=== PATIENT | female | born 1985 | race Caucasian/White ===

== ENCOUNTER 2022-02-20 13:18 | Outpatient (CLI) | payer BC, SELFPAY ==
--- OUTSIDE RECORDS SUMMARY | 2022-02-20 13:20 | XMS_ITS | Clinical Summary ---
:1985 Author Organization [employer] [facility] [place] [address] Care Team Providers Name Role Phone Pcp, No Primary Care Provider Unavailable Allergies Active Allergy Reactions Severity Noted Date Comments Penicillins Rash 06/07/2016 Medications No known medications Active Problems Not on file Social History Tobacco Use Types Packs/Day Years Used Date Never Smoker Tobacco Cessation: Counseling Given: Yes Alcohol Use Standard Drinks/Week Comments No 0 (1 standard drink = 0.6 oz pure alcoho l) Sex Assigned at Date Recorded Not on file Obstetrics History Last Filed Vital Signs Vital Sign Reading Time Taken Comments Blood Pressure 128/88 06/07/2016 5:34 PM BAG SEALER Pulse 80 06/07/2016 5:34 PM BAG SEALER Temperature 37 ??C (98.6 ??F) 06/07/2016 5:34 PM BAG SEALER Respiratory Rate - - Oxygen Saturation 98% 06/07/2016 5:34 PM BAG SEALER Inhaled Oxygen Concentration - - Weight 65.8 kg (145 lb) 06/07/2016 5:34 PM BAG SEALER Height 162.7 cm (5' 4.06) 06/07/2016 5:34 PM BAG SEALER Body Mass Index 24.85 06/07/2016 5:34 PM BAG SEALER Plan of Treatment Health Maintenance Due Date Last Done Comments COVID-19 vaccine series (#1) 1984 Tdap 1995 Depression screening for age 12+ 1996 Hepatitis C screening for age 18-79 2002 Tetanus booster 2004 BMI (ht and wt on same day) for age 18+ 06/07/2017 06/07/20 16 Pap test for age 21-65 04/05/2020 04/05/2017, 04/05/2017 Influenza for age 9-49 02/09/2022 Results Not on filefrom Last 3 Months Insurance Payer Benefit Plan / Subscriber ID Effective Dates Phone Addre ss Type Group BLUE CROSS BLUE CROSS OF [id number] 2014-Present [address] [address] [place] [address] Care Teams Paint Tester Relationship Specialty Start Date End Date Pcp, No PCP - General 06/07/16 .
== END 2022-02-20 13:19 | disposition home or self-care (01) ==
LOC: NFLDREF 13:18
PROVIDERS: Visit Provider Obstetrics & Gynecology
DX: N97.0 Female infertility associated with anovulation (principal)
CPT/HCPCS: 84144

== ENCOUNTER 2022-03-21 17:25 | Outpatient (CLI) | payer BC, SELFPAY ==
--- OUTSIDE RECORDS SUMMARY | 2022-03-21 13:11 | XMS_ITS | Clinical Summary ---
:1985 Author Organization [employer] [facility] [place] [address] Care Team Providers Name Role Phone Pcp, [...] Comments Blood Pressure 128/88 06/07/2016 5:34 PM FIRST AID TEACHER Pulse 80 06/07/2016 5:34 PM FIRST AID TEACHER Temperature 37 ??C (98.6 ??F) 06/07/2016 5:34 PM FIRST AID TEACHER Respiratory Rate - - Oxygen Saturation 98% 06/07/2016 5:34 PM FIRST AID TEACHER Inhaled Oxygen Concentration - - Weight 65.8 kg (145 lb) 06/07/2016 5:34 PM FIRST AID TEACHER Height 162.7 cm (5' 4.06) 06/07/2016 5:34 PM FIRST AID TEACHER Body Mass Index 24.85 06/07/2016 5:34 PM FIRST AID TEACHER Plan of Treatment Health Maintenance Due Date [...] Type Group BLUE CROSS BLUE CROSS OF [id number] 2014-Present [address] [address] [place] [address] Care Teams Maintenance Advisor Relationship Specialty Start Date End Date Pcp, No PCP - General 06/07/16 .
== END 2022-03-21 17:26 | disposition home or self-care (01) ==
PROVIDERS: Visit Provider Obstetrics & Gynecology
DX: R63.5 Abnormal weight gain (principal)
CPT/HCPCS: 84443

== ENCOUNTER 2022-03-30 17:25 | Outpatient (CLI) | payer BC, SELFPAY ==
--- OUTSIDE RECORDS SUMMARY | 2022-03-30 16:28 | XMS_ITS | Clinical Summary ---
:1985 Author Organization [employer] [facility] [place] [address] Care Team Providers Name Role Phone Pcp, [...] Comments Blood Pressure 128/88 06/07/2016 5:34 PM BODY SANDER Pulse 80 06/07/2016 5:34 PM BODY SANDER Temperature 37 ??C (98.6 ??F) 06/07/2016 5:34 PM BODY SANDER Respiratory Rate - - Oxygen Saturation 98% 06/07/2016 5:34 PM BODY SANDER Inhaled Oxygen Concentration - - Weight 65.8 kg (145 lb) 06/07/2016 5:34 PM BODY SANDER Height 162.7 cm (5' 4.06) 06/07/2016 5:34 PM BODY SANDER Body Mass Index 24.85 06/07/2016 5:34 PM BODY SANDER Plan of Treatment Health Maintenance Due Date [...] Type Group BLUE CROSS BLUE CROSS OF [id number] 2014-Present [address] [address] [place] [address] Care Teams Hr Administrative Assistant Relationship Specialty Start Date End Date Pcp, No PCP - General 06/07/16 .
[2022-04-06 14:37] LABS: Progesterone, HPLC-MS/MS 18.11 ng/mL
== END 2022-03-30 17:26 | disposition home or self-care (01) ==
PROVIDERS: Visit Provider Obstetrics & Gynecology
DX: N91.5 Oligomenorrhea, unspecified (principal); N97.0 Female infertility associated with anovulation
CPT/HCPCS: 84144

== ENCOUNTER 2022-04-10 16:51 | Outpatient (CLI) | payer BC, SELFPAY ==
--- OUTSIDE RECORDS SUMMARY | 2022-04-10 16:17 | XMS_ITS | Clinical Summary ---
:1985 Author Organization [employer] [facility] [place] [address] Care Team Providers Name Role Phone Pcp, [...] Comments Blood Pressure 128/88 06/07/2016 5:34 PM SKIP LOCATOR Pulse 80 06/07/2016 5:34 PM SKIP LOCATOR Temperature 37 ??C (98.6 ??F) 06/07/2016 5:34 PM SKIP LOCATOR Respiratory Rate - - Oxygen Saturation 98% 06/07/2016 5:34 PM SKIP LOCATOR Inhaled Oxygen Concentration - - Weight 65.8 kg (145 lb) 06/07/2016 5:34 PM SKIP LOCATOR Height 162.7 cm (5' 4.06) 06/07/2016 5:34 PM SKIP LOCATOR Body Mass Index 24.85 06/07/2016 5:34 PM SKIP LOCATOR Plan of Treatment Health Maintenance Due Date [...] Type Group BLUE CROSS BLUE CROSS OF [id number] 2014-Present [address] [address] [place] [address] Care Teams Cement Storage Worker Relationship Specialty Start Date End Date Pcp, No PCP - General 06/07/16 .
[2022-04-10 17:40] LABS: HCG Quantitative* 69.64 mIU/mL
== END 2022-04-10 16:52 | disposition home or self-care (01) ==
PROVIDERS: Visit Provider Obstetrics & Gynecology
DX: N96 Recurrent pregnancy loss (principal)
CPT/HCPCS: 84702

== ENCOUNTER 2022-04-13 08:15 | Outpatient (CLI) | payer BC, SELFPAY ==
--- OUTSIDE RECORDS SUMMARY | 2022-04-13 08:18 | XMS_ITS | Clinical Summary ---
:1985 Author Organization [employer] [facility] [place] [address] Care Team Providers Name Role Phone Pcp, [...] Comments Blood Pressure 128/88 06/07/2016 5:34 PM CONSOLE MANAGER Pulse 80 06/07/2016 5:34 PM CONSOLE MANAGER Temperature 37 ??C (98.6 ??F) 06/07/2016 5:34 PM CONSOLE MANAGER Respiratory Rate - - Oxygen Saturation 98% 06/07/2016 5:34 PM CONSOLE MANAGER Inhaled Oxygen Concentration - - Weight 65.8 kg (145 lb) 06/07/2016 5:34 PM CONSOLE MANAGER Height 162.7 cm (5' 4.06) 06/07/2016 5:34 PM CONSOLE MANAGER Body Mass Index 24.85 06/07/2016 5:34 PM CONSOLE MANAGER Plan of Treatment Health Maintenance Due Date [...] Type Group BLUE CROSS BLUE CROSS OF [id number] 2014-Present [address] [address] [place] [address] Care Teams Rhit Relationship Specialty Start Date End Date Pcp, No PCP - General 06/07/16 .
[2022-04-13 16:41] LABS: HCG Quantitative* 147.13 mIU/mL
== END 2022-04-13 08:16 | disposition home or self-care (01) ==
LOC: NFLDREF 08:16
PROVIDERS: Visit Provider Obstetrics & Gynecology
DX: N96 Recurrent pregnancy loss (principal); N97.9 Female infertility, unspecified
CPT/HCPCS: 84702

== ENCOUNTER 2022-04-27 15:52 | Outpatient (CLI) | payer BC, SELFPAY ==
--- OUTSIDE RECORDS SUMMARY | 2022-04-27 15:56 | XMS_ITS | Clinical Summary ---
:1985 Author Organization [employer] [facility] [place] [address] Care Team Providers Name Role Phone Pcp, [...] Comments Blood Pressure 128/88 06/07/2016 5:34 PM PROFILE MILL OPERATOR TAPE CONTROL Pulse 80 06/07/2016 5:34 PM PROFILE MILL OPERATOR TAPE CONTROL Temperature 37 ??C (98.6 ??F) 06/07/2016 5:34 PM PROFILE MILL OPERATOR TAPE CONTROL Respiratory Rate - - Oxygen Saturation 98% 06/07/2016 5:34 PM PROFILE MILL OPERATOR TAPE CONTROL Inhaled Oxygen Concentration - - Weight 65.8 kg (145 lb) 06/07/2016 5:34 PM PROFILE MILL OPERATOR TAPE CONTROL Height 162.7 cm (5' 4.06) 06/07/2016 5:34 PM PROFILE MILL OPERATOR TAPE CONTROL Body Mass Index 24.85 06/07/2016 5:34 PM PROFILE MILL OPERATOR TAPE CONTROL Plan of Treatment Health Maintenance Due Date [...] Type Group BLUE CROSS BLUE CROSS OF [id number] 2014-Present [address] [address] [place] [address] Care Teams Airport Ramp Attendant Relationship Specialty Start Date End Date Pcp, No PCP - General 06/07/16 .
--- NOTE | 2022-04-27 16:00 | CRLHL7_ITS ---
For Patients: As a result of the Century Cures Act, medical imaging exams and procedure reports are released immediately into your electronic medical record. You may view this report before your referring provider. If you have questions, please contact your health care provider. INDICATION: Early bleeding COMPARISON: None. TECHNIQUE: Real-time segura-scale imaging of the pelvis was performed. FINDINGS: The endometrium is thickened and measures 16 millimeters. No uterine fibroid. No intrauterine gestational sac. No endometrial fluid is present. No pelvic free fluid noted. There is a hyperechoic structure within the left ovary measuring 9 x 11 x 9 millimeters. Normal color Doppler flow to both ovaries. No evidence of ovarian torsion. Incidental right paraovarian simple cyst measuring 1.5 x 0.9 x 1.0 cm. Right ovary measures 3.4 x 2.3 x 2.6 cm. Left ovary measures 3.5 x 3.4 x 2.3 cm. IMPRESSION: No evidence of intrauterine or ectopic . Dictated by Agustin Jade MD @ 04/27/2022 5:55:36 PM (Electronically Signed)
== END 2022-04-27 15:53 | disposition home or self-care (01) ==
LOC: US 15:55
PROVIDERS: Visit Provider Obstetrics & Gynecology
DX: O20.9 Hemorrhage in early pregnancy, unspecified (principal); N96 Recurrent pregnancy loss
CPT/HCPCS: 76817

== ENCOUNTER 2022-05-01 15:46 | Outpatient (CLI) | payer BC, SELFPAY ==
--- OUTSIDE RECORDS SUMMARY | 2022-05-01 15:52 | XMS_ITS | Clinical Summary ---
:1985 Author Organization [employer] [facility] [place] [address] Care Team Providers Name Role Phone Pcp, [...] Comments Blood Pressure 128/88 06/07/2016 5:34 PM OFFICE CLERK Pulse 80 06/07/2016 5:34 PM OFFICE CLERK Temperature 37 ??C (98.6 ??F) 06/07/2016 5:34 PM OFFICE CLERK Respiratory Rate - - Oxygen Saturation 98% 06/07/2016 5:34 PM OFFICE CLERK Inhaled Oxygen Concentration - - Weight 65.8 kg (145 lb) 06/07/2016 5:34 PM OFFICE CLERK Height 162.7 cm (5' 4.06) 06/07/2016 5:34 PM OFFICE CLERK Body Mass Index 24.85 06/07/2016 5:34 PM OFFICE CLERK Plan of Treatment Health Maintenance Due Date [...] Type Group BLUE CROSS BLUE CROSS OF [id number] 2014-Present [address] [address] [place] [address] Care Teams Airline Counter Agent Relationship Specialty Start Date End Date Pcp, No PCP - General 06/07/16 .
[2022-05-03 12:58] LABS: Rheumatoid Factor <10 IU/mL (0-14)
[2022-05-04 03:39] LABS: Cardiolipin Antibody IgA <10 APL (<=11); Cardiolipin Antibody IgG <10 GPL (<=14); Cardiolipin Antibody IgM 10 MPL (<=12)
[2022-05-08 01:41] LABS: dRVVT Screen 32 sec (33-44)
== END 2022-05-01 15:47 | disposition home or self-care (01) ==
PROVIDERS: Visit Provider Obstetrics & Gynecology
DX: N96 Recurrent pregnancy loss (principal)
CPT/HCPCS: 82232; 85610; 85613; 85730; 86147; 86431; 88262

== ENCOUNTER 2022-06-16 17:14 | Outpatient (CLI) | payer BC, SELFPAY | END 2022-06-16 17:15 | disposition home or self-care (01) | PROVIDERS: Visit Provider Obstetrics & Gynecology | DX: N97.0 Female infertility associated with anovulation (principal); N96 Recurrent pregnancy loss | CPT/HCPCS: 84144 ==

== ENCOUNTER 2022-06-26 08:40 | Outpatient (CLI) | payer SELFPAY ==
[2022-06-26 16:30] LABS: HCG Quantitative* < 2.39 mIU/mL
== END 2022-06-26 08:41 | disposition home or self-care (01) ==
LOC: NFLDREF 08:43
PROVIDERS: Visit Provider Obstetrics & Gynecology
DX: N96 Recurrent pregnancy loss (principal)
CPT/HCPCS: 84702

== ENCOUNTER 2022-10-02 09:18 | Outpatient (CLI) | payer BC, SELFPAY | END 2022-10-02 09:19 | disposition home or self-care (01) | PROVIDERS: Visit Provider Obstetrics & Gynecology | DX: Z01.419 Encounter for gynecological examination (general) (routine) without abnormal findings (principal); E55.9 Vitamin D deficiency, unspecified; R63.5 Abnormal weight gain | CPT/HCPCS: 82306; 84443; 84702 ==

== ENCOUNTER 2022-11-27 16:08 | Outpatient (CLI) | payer BC, SELFPAY | END 2022-11-27 16:09 | disposition home or self-care (01) | PROVIDERS: PCP Obstetrics & Gynecology; Referring Provider Obstetrics & Gynecology; Visit Provider Obstetrics & Gynecology | DX: N97.0 Female infertility associated with anovulation (principal) | CPT/HCPCS: 84144 ==

== ENCOUNTER 2023-01-25 15:11 | Outpatient (CLI) | payer BC, SELFPAY | END 2023-01-25 15:12 | disposition home or self-care (01) | LOC: NFLDREF 15:13 | PROVIDERS: Visit Provider Obstetrics & Gynecology | DX: R53.83 Other fatigue (principal); N97.0 Female infertility associated with anovulation; R63.5 Abnormal weight gain | CPT/HCPCS: 82533; 82728 ==

== ENCOUNTER 2023-04-11 14:30 | Outpatient (REF) | payer BC, SELFPAY ==
[2023-04-11 17:55] LABS: HCG Quantitative* 21.58 mIU/mL
== END 2023-04-11 14:31 | disposition home or self-care (01) ==
LOC: NPINS 14:30
PROVIDERS: Visit Provider Obstetrics & Gynecology
DX: Z32.01 Encounter for pregnancy test, result positive (principal)
CPT/HCPCS: 84144; 84702

== ENCOUNTER 2023-04-13 18:48 | Outpatient (REF) | payer BC, SELFPAY ==
[2023-04-13 19:34] LABS: HCG Quantitative* 118.59 mIU/mL
== END 2023-04-13 18:49 | disposition home or self-care (01) ==
LOC: NPINS 18:48
PROVIDERS: Visit Provider Obstetrics & Gynecology
DX: Z32.01 Encounter for pregnancy test, result positive (principal)
CPT/HCPCS: 84702

== ENCOUNTER 2023-04-24 08:44 | Outpatient (CLI) | payer BC, SELFPAY | END 2023-04-24 08:45 | disposition home or self-care (01) | LOC: NFLDREF 08:46 | PROVIDERS: Visit Provider Obstetrics & Gynecology | DX: O20.9 Hemorrhage in early pregnancy, unspecified (principal) | CPT/HCPCS: 84702 ==

== ENCOUNTER 2023-04-26 10:45 | Outpatient (CLI) | payer BC, SELFPAY | END 2023-04-26 10:46 | disposition home or self-care (01) | LOC: NFLDREF 05-03 03:56 | PROVIDERS: Visit Provider Obstetrics & Gynecology | DX: O20.9 Hemorrhage in early pregnancy, unspecified (principal) | CPT/HCPCS: 84702 ==

== ENCOUNTER 2023-04-27 15:45 | Outpatient (CLI) | payer BC, SELFPAY ==
--- NOTE | 2023-04-27 16:00 | CRLHL7_ITS ---
For Patients: As a result of the Century Cures Act, medical imaging exams and procedure reports are released immediately into your electronic medical record. You may view this report before your referring provider. If you have questions, please contact your health care provider. INDICATION: Bleeding in early . TECHNIQUE: Ultrasound OB pelvis transabdominal and transvaginal. Real-time segura-scale imaging of the pelvis was performed. COMPARISON: None. FINDINGS: Intrauterine gestational sac: Present with an irregular gestational sac in the lower uterine segment. Embryo present: Yes. Embryo cardiac activity: 100 BPM. Knowles rump Length: 0.4 cm. Sonographic gestational age: 6 weeks 1 day. Sonographic estimated due date: December 20, 2023. Yolk sac: Normal. Perigestational hemorrhage: Large measuring approximately 3 cm. Ovaries and adnexae: Unremarkable. No suspicious lesions or fluid collections. IMPRESSION: Single viable intrauterine . However, the gestational sac is irregular and disposition in the lower uterine segment. These findings are suspicious for a threatened . Dictated by Taj Allen MD @ 04/28/2023 8:54:52 AM (Electronically Signed)
== END 2023-04-27 15:46 | disposition home or self-care (01) ==
LOC: US 15:46
PROVIDERS: Visit Provider Obstetrics & Gynecology
DX: O20.9 Hemorrhage in early pregnancy, unspecified (principal)
CPT/HCPCS: 76817

== ENCOUNTER 2024-03-03 07:02 | Outpatient (CLI) | payer BC, SELFPAY ==
--- OUTSIDE RECORDS SUMMARY | 2024-03-03 07:05 | XMS_ITS | Clinical Summary ---
Author Organization [employer] [facility] Address [place], [place] [address] Care Team Providers Care Database Administration Associate Name Role Phone Pcp, No Primary Care Provider Unavailabl e Allergies Active Allergy Reactions Criticality Noted Date Comments Penicillins Rash 06/07/2016 Medications No known medications Social History Tobacco Use Types Packs/Day Years Used Date Smoking Tobacco: Never Tobacco Cessation:Counseling Given: Yes Alcohol Use Standard Drinks/Week Comments No 0 (1 standard drink = 0.6 oz pur e alcohol) Sex and Gender Information Value Date Recorded Sex Assigned at Not on file Gender Identity Not on file Sexual Orientation Not on file Obstetrics History Last Filed Vital Signs Vital Sign Reading Time Taken Comments Blood Pressure 128/88 06/07/2016 5:34 PM BIOMETRIC TECHNICIAN Pulse 80 06/07/2016 5:34 PM BIOMETRIC TECHNICIAN Temperature 37 ??C (98.6 ??F) 06/07/2016 5:34 PM BIOMETRIC TECHNICIAN Respiratory Rate - - Oxygen Saturation 98% 06/07/2016 5:34 PM BIOMETRIC TECHNICIAN Inhaled Oxygen Concentration - - Weight 65.8 kg (145 lb) 06/07/2016 5:34 PM BIOMETRIC TECHNICIAN Height 162.7 cm (5' 4.06) 06/07/2016 5:34 PM CS T Body Mass Index 24.85 06/07/2016 5:34 PM BIOMETRIC TECHNICIAN Plan of Treatment Health Maintenance Due Date Last Done Comments Tdap 1995 Depression screening for age 12+ 1996 HIV for age 15-65 1999 Hepatitis C screening for age 18-79 2002 Tetanus booster 2004 BMI (ht and wt on same day) for age 18+ 06/07/2017 06/07/2016 COVID-19 vaccine series ( season) 2024 Influenza for age 9-49 02/10/2024 Pap test for age 21-65 10/02/2025 , 10/02/2022, 04/05/2017, Additional history exists Pneumococcal series for age 6-64 Aged Out No longer eligible based on patient's age to complete this topic Procedures Procedure Name Priority Date/Time Associated Diagnosis Comments HPV HIGH RISK Routine 10/02/2022 9:15 AM CDT from Last 3 Months or Most Recently Relevant to Health Maintenance Results * HPV HIGH RISK (10/02/2022 9:15 AM CDT) TYPE 16 Negative Negative 10/04/2022 4:15 PM CDT [facility] TYPE 18 Negative Negative 10/04/2022 4:15 PM CDT [facility] OTHER HIGH RISK TYPES Negative Negative 10/04/2022 4:15 PM CDT [facility] Other (Cervical) 10/02/2022 9:15 AM CDT 10/03/2022 11:50 AM CDT Narrative [facility] - 10/04/2022 4:15 PM CDT HPV types 16, 18, 31, 33, 35, 39, 45, 51, 52, 56, 58, 59, 66 and 68 DNA were undetectable or below the pre-set threshold. Methodology: Amy Donte 4800 HPV Test Raina Sampson MD [facility] [address] [place] [address], from Last 3 Months or Most Recently Relevant to Health Maintenance Care Teams Database Administration Associate Relationship Specialty Start Date End Date Pcp, No . PCP - General 06/07/16
--- NOTE | 2024-03-03 07:15 | CRLHL7_ITS ---
For Patients: As a result of the Century Cures Act, medical imaging exams and procedure reports are released immediately into your electronic medical record. You may view this report before your referring provider. If you have questions, please contact your health care provider. INDICATION: Dorsalgia. TECHNIQUE : Lumbar spine MRI without contrast. COMPARISON: Lumbar spine radiographs from 02/21/2024. FINDINGS : Five lumbar type vertebral bodies, with the last fully formed disc space designated as L5-S1. Normal lumbar lordotic curve. No recent compression fracture or marrow replacing process. Lower cord/conus signal is normal. The conus terminates at a normal location. No intradural lesion. No extraspinal soft tissue abnormalities. Discs/Endplates: L4-5 disc dehydration. The remaining discs exhibit normal height and signal. Findings at individual levels as follows: Imaged lower thoracic levels: No spinal canal or neural foraminal stenosis. L1-2: No spinal canal or neural foraminal stenosis. L2-3: No spinal canal or neural foraminal stenosis. L3-4: No spinal canal or neural foraminal stenosis. L4-5: A shallow central protrusion minimally contacts the traversing L5 nerve roots. No spinal canal or neural foraminal stenosis. L5-S1: No spinal canal or neural foraminal stenosis. Imaged SI joints: Within normal limits. Imaged sacrum: Within normal limits. IMPRESSION: 1. No high-grade spinal canal/neural foraminal stenosis or nancy impingement of neural structures at any imaged level. 2. At L4-5, a shallow central protrusion minimally contacts the traversing L5 nerve roots. Dictated by Charlie Cheung MD @ 03/03/2024 10:51:58 AM (Electronically Signed)
== END 2024-03-03 07:03 | disposition home or self-care (01) ==
LOC: MRI 07:04
PROVIDERS: PCP Family Medicine; Visit Provider Internal Medicine
DX: M54.9 Dorsalgia, unspecified (principal); M51.26 Other intervertebral disc displacement, lumbar region
CPT/HCPCS: 72148

== ENCOUNTER 2024-06-13 12:20 | Outpatient (RCR) | payer BC, SELFPAY | END 2024-10-11 23:59 | disposition home or self-care (01) | PROVIDERS: PCP Internal Medicine; Visit Provider Family Medicine | DX: M51.26 Other intervertebral disc displacement, lumbar region (principal); Z51.89 Encounter for other specified aftercare | CPT/HCPCS: 97110; 97162 ==

== ENCOUNTER 2024-09-16 17:17 | Outpatient (CLI) | payer BC, SELFPAY ==
--- NOTE | 2024-09-16 17:20 | CRLHL7_ITS ---
For Patients: As a result of the Cures Act, medical imaging exams and procedure reports are released immediately into your electronic medical record. You may view this report before your referring provider. If you have questions, please contact your health care provider. BILATERAL DIGITAL SCREENING MAMMOGRAM WITH COMPUTER-AIDED DETECTION AND TOMOSYNTHESIS CLINICAL HISTORY: : Routine screening exam. COMPARISON: None TECHNIQUE: Digital mammogram in CC and MLO projections including computer-aided detection (CAD). Tomosynthesis was used in this interpretation. BREAST COMPOSITION: There are scattered areas of fibroglandular density. FINDINGS: RIGHT Breast: No suspicious findings LEFT Breast: Focal asymmetric density within the lower outer quadrant 6 cm from the nipple. IMPRESSION: LEFT breast asymmetry/mass. RECOMMENDATIONS: Additional mammographic views of the LEFT breast including 3D spot compression CC/MLO. LEFT breast ultrasound may also be required. The [facility] will contact the patient. A lay language report of this examination will be provided to the patient. BI-RADS Category 0: Incomplete: Need Additional Imaging Evaluation Dictated by Agustin Jade MD @ 09/17/2024 10:53:21 AM Dictated by: Agustin Jade MD @ 09/17/2024 10:53:38 (Electronically Signed)
== END 2024-09-16 17:18 | disposition home or self-care (01) ==
LOC: MAMMO 17:17
PROVIDERS: PCP Internal Medicine; Visit Provider Obstetrics & Gynecology
DX: Z12.31 Encounter for screening mammogram for malignant neoplasm of breast (principal); N63.20 Unspecified lump in the left breast, unspecified quadrant
CPT/HCPCS: 77063; 77067

== ENCOUNTER 2024-09-19 09:31 | Outpatient (CLI) | payer BC, SELFPAY ==
--- NOTE | 2024-09-19 09:45 | CRLHL7_ITS ---
For Patients: As a result of the Century Cures Act, medical imaging exams and procedure reports are released immediately into your electronic medical record. You may view this report before your referring provider. If you have questions, please contact your health care provider. CLINICAL HISTORY: LEFT breast mass/asymmetry. COMPARISON: 09/16/2024 TECHNIQUE: Digital LEFT mammogram in 2 projections. Tomosynthesis was used in this interpretation. Real-time ultrasound imaging of LEFT breast with imaging documentation. BREAST COMPOSITION: The breasts are heterogeneously dense, which may obscure small masses. FINDINGS: 3D spot compression CC/MLO left breast mammogram images submitted. Decreased conspicuity of previously noted asymmetric density. No suspicious calcifications or architectural distortion. Targeted left breast ultrasound performed at 6 o`clock 7 cm from the nipple. Normal fibroglandular tissue is present. No fibrocystic change or solid mass. IMPRESSION: No suspicious findings. No evidence of malignancy. RECOMMENDATIONS: Routine screening mammography. A lay language report of this examination will be provided to the patient. BI-RADS Category 2. Benign. Dictated by Agustin Jade MD @ 09/19/2024 10:58:02 AM Dictated by: Agustin Jade MD @ 09/19/2024 10:58:08 (Electronically Signed)
--- NOTE | 2024-09-19 10:15 | CRLHL7_ITS ---
For Patients: As a result of the Century Cures Act, medical imaging exams and procedure reports are released immediately into your electronic medical record. You may view this report before your referring provider. If you have questions, please contact your health care provider. CLINICAL HISTORY: LEFT breast mass/asymmetry. COMPARISON: 09/16/2024 TECHNIQUE: Digital LEFT mammogram in 2 projections. Tomosynthesis was used in this interpretation. Real-time ultrasound imaging of LEFT breast with imaging documentation. BREAST COMPOSITION: The breasts are heterogeneously dense, which may obscure small masses. FINDINGS: 3D spot compression CC/MLO left breast mammogram images submitted. Decreased conspicuity of previously noted asymmetric density. No suspicious calcifications or architectural distortion. Targeted left breast ultrasound performed at 6 o`clock 7 cm from the nipple. Normal fibroglandular tissue is present. No fibrocystic change or solid mass. IMPRESSION: No suspicious findings. No evidence of malignancy. RECOMMENDATIONS: Routine screening mammography. A lay language report of this examination will be provided to the patient. BI-RADS Category 2. Benign. Dictated by Agustin Jade MD @ 09/19/2024 10:58:34 AM Dictated by: Agustin Jade MD @ 09/19/2024 10:58:42 (Electronically Signed)
== END 2024-09-19 09:32 | disposition home or self-care (01) ==
LOC: MAMMO 09:32
PROVIDERS: PCP Internal Medicine; Visit Provider Obstetrics & Gynecology
DX: N63.20 Unspecified lump in the left breast, unspecified quadrant (principal); R92.333 Mammographic heterogeneous density, bilateral breasts
CPT/HCPCS: 76642; 77065; G0279

== ENCOUNTER 2025-03-09 07:40 | Outpatient (CLI) | payer BC, SELFPAY | END 2025-03-09 07:41 | disposition home or self-care (01) | LOC: NFLDREF 03-10 06:18 | PROVIDERS: PCP Internal Medicine; Referring Provider Internal Medicine; Visit Provider Registered Nurse | DX: Z13.6 Encounter for screening for cardiovascular disorders (principal); R53.83 Other fatigue; E28.2 Polycystic ovarian syndrome; Z13.1 Encounter for screening for diabetes mellitus | CPT/HCPCS: 80061; 82306; 82533; 82607; 82670; 82947; 83525; 83735; 84144; 84443; 84630 ==

== ENCOUNTER 2025-05-20 07:10 | Outpatient (CLI) | payer BC, SELFPAY ==
--- NOTE | 2025-05-20 07:15 | CRLHL7_ITS ---
For Patients: As a result of the Century Cures Act, medical imaging exams and procedure reports are released immediately into your electronic medical record. You may view this report before your referring provider. If you have questions, please contact your health care provider. INDICATION: unspecified abdominal pain COMPARISON: none TECHNIQUE: Real time segura scale imaging and color Doppler analysis was performed of the right upper quadrant. FINDINGS: The patient`s liver is of normal size and has uniform echogenicity. There is a normal appearance of the hepatic IVC and proximal abdominal aorta. There is no evidence of ascites. The gallbladder is of normal size and there is no evidence of intraluminal stones or sludge. The gallbladder wall measures 1 mm in thickness. The common bile duct is of normal size and measures 3 mm in diameter at the level of the greta hepatis. The pancreas appears normal. There is no evidence of a stone or hydronephrosis within the right kidney. The right kidney measures 11.1 cm in length. IMPRESSION: Normal right upper quadrant ultrasound. Dictated by Agustin Jade MD @ 05/20/2025 9:03:31 AM (Electronically Signed)
== END 2025-05-20 07:11 | disposition home or self-care (01) ==
LOC: US 07:10
PROVIDERS: PCP Internal Medicine; Visit Provider Internal Medicine
DX: R10.9 Unspecified abdominal pain (principal)
CPT/HCPCS: 76705

== ENCOUNTER 2025-06-09 12:25 | Outpatient (CLI) | payer BC, SELFPAY ==
--- NOTE | 2025-06-09 12:30 | CRLHL7_ITS ---
For Patients: As a result of the Century Cures Act, medical imaging exams and procedure reports are released immediately into your electronic medical record. You may view this report before your referring provider. If you have questions, please contact your health care provider. INDICATION: Abdominal bloating. TECHNIQUE: 7.0 mCi Tc-99m labeled Mebrofenin. The CCK dose was not provided or documented at the time of this dictation. COMPARISON: Correlation is made with a right upper quadrant ultrasound May 20, 2025. FINDINGS: Normal uptake and excretion of tracer by the liver. Activity is identified promptly within the gallbladder and extrahepatic biliary tree between 5 and 10 minutes after injection. The gallbladder continues to fill up to 1 hour. No biliary leak. After the administration of CCK, the gallbladder ejection fraction is calculated at 38 percent which is above the lower limit of normal of 35 percent. (No patient symptomatology after CCK administration was documented/provided at the time of this dictation). IMPRESSION : 1. Normal HIDA scan. 2. Normal gallbladder ejection fraction (please note the ejection fraction is toward the lower limit of normal). Dictated by Jerrod Ocasio MD @ 06/10/2025 9:53:15 AM (Electronically Signed)
== END 2025-06-09 12:26 | disposition home or self-care (01) ==
LOC: NM 12:25
PROVIDERS: PCP Internal Medicine; Visit Provider Internal Medicine
DX: R14.0 Abdominal distension (gaseous) (principal)
CPT/HCPCS: 78227; A9537; J2805